=== PATIENT | female | born 1940 | race Caucasian/White ===

== ENCOUNTER → 2017-11-25 | Outpatient (CLI) | payer MEDICARE ==
[~2017-11-25] MED LIST: ATEN-1 PO; CALC625T57 PO; FLU45SYR25 IM ONLY; HYDR12.556 PO; LEVO25TA61 PO; LEVO50TA86 PO; LISI2.5T60 PO; METF-420 PO; METO-224 PO; MIRT-25 PO; OMEP-137 PO; PNEU0.5D3 IM; SIMV-54 PO; SULF-198 PO; ZOST19404 IM
== END ==
LOC: LAB 11:34
PROVIDERS: ATTEND Nurse Practitioner Family
DX: E03.9 Hypothyroidism, unspecified (principal)
CPT/HCPCS: 84443

== ENCOUNTER → 2018-01-20 | Outpatient (CLI) | payer MEDICARE ==
[~2018-01-20] MED LIST changes: +LEVO75TA73 PO; +MIRT7.5T2 PO
[2018-01-20 11:06] LABS: PLATELET COUNT, AUTOMATED 239 K/uL (150-450)
== END ==
LOC: LAB 10:05
PROVIDERS: ATTEND Nurse Practitioner Family
DX: E11.9 Type 2 diabetes mellitus without complications (principal); E78.5 Hyperlipidemia, unspecified; I10 Essential (primary) hypertension; I50.9 Heart failure, unspecified
CPT/HCPCS: 36415; 82040; 82247; 82310; 82374; 82435; 82465; 82565; 82947; 83036; 83718; 83880; 84075; 84132; 84155; 84295; 84443; 84450; 84460; 84478; 84520; 85025

== ENCOUNTER → 2018-05-01 | Outpatient (CLI) | payer MEDICARE ==
[~2018-05-01] MED LIST changes: -METF-420 PO; +METF-421 PO
== END ==
LOC: LAB 14:50
PROVIDERS: ATTEND Pharmacist Pharmacotherapy
DX: E03.9 Hypothyroidism, unspecified (principal)
CPT/HCPCS: 36415; 84443

== ENCOUNTER → 2018-06-10 | Outpatient (CLI) | payer MEDICARE ==
[~2018-06-10] MED LIST changes: +ASPI-1471 PO; +DONE5TAB29 PO; +GEMF600T91 PO; +METO25TA23 PO
[2018-06-10 11:39] LABS: PLATELET COUNT, AUTOMATED 242 K/uL (150-450)
== END ==
LOC: LAB 11:09
PROVIDERS: ATTEND Nurse Practitioner Family
DX: E11.9 Type 2 diabetes mellitus without complications (principal); E78.5 Hyperlipidemia, unspecified; I10 Essential (primary) hypertension; I50.9 Heart failure, unspecified; I25.10 Atherosclerotic heart disease of native coronary artery without angina pectoris
CPT/HCPCS: 36415; 82040; 82247; 82310; 82374; 82435; 82465; 82565; 82947; 83036; 83718; 83880; 84075; 84132; 84155; 84295; 84443; 84450; 84460; 84478; 84520; 85025

== ENCOUNTER → 2018-10-13 | Outpatient (CLI) | payer MEDICARE ==
[~2018-10-13] MED LIST changes: +DONE10TA38 PO; +DULO20CA3 PO; -GEMF600T91 PO; +GEMF600T92 PO; -METF-421 PO; +METF-452 PO; +ROSU20TA5 PO
== END ==
LOC: LAB 13:04
PROVIDERS: ATTEND Nurse Practitioner Family
DX: E78.5 Hyperlipidemia, unspecified (principal); E11.9 Type 2 diabetes mellitus without complications; I10 Essential (primary) hypertension
CPT/HCPCS: 36415; 82040; 82247; 82310; 82374; 82435; 82465; 82565; 82947; 83036; 83718; 84075; 84132; 84155; 84295; 84450; 84460; 84478; 84520

== ENCOUNTER → 2018-11-30 | Outpatient (CLI) | payer MEDICARE ==
[~2018-11-30] MED LIST changes: +GABA-547 PO; +GABA-549 PO; -GEMF600T92 PO; +GEMF600T96 PO; +GLIM1TAB25 PO
--- NOTE | 2018-11-30 11:35 | EKG ---
FACILITY: [facility] [place] PATIENT NAME: CHRIS CUEVAS : [id number] MR: [id number] V: [id number] EXAM DATE: ORDERING PHYSICIAN: MARIO TECHNOLOGIST: JOSE Andrade Reason : ARRHYTHMIA Blood Pressure : / mmHG Vent. Rate : 072 BPM Atrial Rate : 072 BPM P-R Int : 186 ms QRS Dur : 134 ms QT Int : 454 ms P-R-T Axes : 069 076 112 degrees QTc Int : 497 ms Poor data quality, interpretation may be adversely affected Normal sinus rhythm Nonspecific intraventricular block Abnormal ECG When compared with ECG of 05-AUG-2016 11:19, No significant change was found Confirmed by Alessandro Hart ([id number] on 11/30/2018 8:44:35 PM Referred By: Confirmed By:Alessandro Sherman
== END ==
LOC: LAB 10:09
PROVIDERS: ATTEND Nurse Practitioner Family
DX: I45.4 Nonspecific intraventricular block (principal); E78.5 Hyperlipidemia, unspecified; I50.9 Heart failure, unspecified
CPT/HCPCS: 36415; 82040; 82247; 82310; 82374; 82435; 82465; 82565; 82947; 83718; 83880; 84075; 84132; 84155; 84295; 84450; 84460; 84478; 84520

== ENCOUNTER → 2018-12-14 | Outpatient (CLI) | payer MEDICARE ==
[~2018-12-14] MED LIST changes: +IOPAMIDOL 76% 100 ML INFUS BTL 100 ML ONE; +NS(*) 0.9% 50 ML BAG 50 ML ONE; +RIVA15TA PO
--- NOTE | 2018-12-14 18:02 | RADIOLOGY IMAGING REPORT ---
FACILITY: [facility] PATIENT NAME: Althea Brown : 1940 MR: [id number] V: [id number] EXAM DATE: ORDERING PHYSICIAN: KEYANA MARTIN TECHNOLOGIST: Location: [facility] - [place], [place] Patient: Althea Brown : 1940 Visit/Account:[id number] Date of Sevice: 12/14/2018 CT CTA CHEST W & W/O CON HISTORY: Abnormal echo r/o thrombus ADDITIONAL HISTORY: None. TECHNIQUE: CTA chest with intravenous contrast. Axial imaging acquired following administration of IV contrast timed for maximum opacification of the pulmonary arterial vasculature. Slab 3-D MIP angie nstructed images were also created for further evaluation and interpretation. Reconstruction of the [place] [facility] [place] includes multiplanar 2-D in the sagittal and coronal planes and 3-D reconstructed rebecca nal slab MIP series. 3-D images were created by the technologist.Dose Lowering Technique One of the following dose optimization techniques was utilized in the performance of this exam: Autom ated exposure control; adjustment of the mA and/or kV according to the patient's size; or use of an i terative reconstruction technique. Specific details can be referenced in the facility's radiology C T exam operational policy. CONTRAST: 75 mL Isovue-370 COMPARISON: None. FINDINGS: Lungs/pleura: There is coarse linear stranding the right middle lobe consistent with atelectasis or scarring. There is septal and interstitial thickening seen along the posterior aspect of both lower lobes and posterior aspect of the lingula which may represent dependent change or developing infiltra duong. There is no evidence of pleural effusions. Calcified granulomas in both lungs Heart/vessels: The main pulmonary artery is prominent measuring 4 cm in diameter. Period the right main pulmonary artery and interlobar artery likewise appear prominent.. There is a linear hyperatten uating region along the posterior aspect of the right pulmonary artery and interlobar artery. The ap pearance is more suggestive of extrinsic mass effect from adjacent mediastinal soft tissue. Possibil ity of a small amount of thrombus along the posterior wall not entirely excluded. Otherwise no evide nce of pulmonary emboli.. There calcifications at the root of the aorta Mediastinum/lymph nodes: Negative. Visualized upper abdomen: Postsurgical changes from a cholecystectomy. Calcifications in the visual ized proximal abdominal aorta. There are several portacaval lymph nodes. The largest measures 1.6 x 1.2 cm Bones/soft tissues: Sternotomy sutures are present. There are spondylotic changes of the thoracic s pine Additional findings: None IMPRESSION: There is linear scarring versus atelectasis the right middle lobe Subpleural interstitial thickening along the posterior aspect of both lower lobes and posterior aspec t the lingula may represent dependent change or developing infiltrates Evidence for prior granulomatous process. Enlargement of the main pulmonary artery, right pulmonary artery and right intralobar artery which ca n be seen with with pulmonary arterial hypertension. There is a linear hypoattenuating region along the posterior aspect of the right pulmonary artery int erlobar artery. The appearance is more suggestive of extrinsic mass effect from adjacent mediastinal soft tissue. Possibility of a small amount of thrombus along the posterior wall not entirely exclud ed . Postsurgical changes from a cholecystectomy There are several portacaval lymph nodes. These could be reactive however clinical correlation neede d Report Dictated By: Felicia Godoy MD at 12/14/2018 5:43 PM Report E-Signed By: Felicia Godoy MD at 12/14/2018 5:58 PM WSN:[email or web address]
--- NOTE | 2018-12-14 18:05 | RADIOLOGY IMAGING REPORT ---
FACILITY: [facility] [place] PATIENT NAME: Althea Brown : 1940 MR: [id number] V: [id number] EXAM DATE: ORDERING PHYSICIAN: KEYANA MARTIN TECHNOLOGIST: Location: [facility] Patient: Althea Brown : 1940 Visit/Account:[id number] Date of Sevice: 12/14/2018 CAROTID HISTORY: lightheaded hx of CAD COMPARISON: None. FINDINGS: Grayscale, duplex and color Doppler interrogation of the extracranial carotid and vertebral arteries was performed bilateral. On the right, peak systolic velocities within the common and internal carotid arteries are 111 and 11 7 cm/sec respectively. A small amount of hard and soft plaque identified at the right carotid bulb e xtending into the right internal and external carotid arteries. Antegrade flow within the common, in ternal and external carotid arteries as well as vertebral artery. ICA/CCA ratio 1.05. On the left, peak systolic velocities within the common and internal carotid arteries are 97 and 143 cm/sec respectively. Small amount of hard and soft plaque identified left carotid bulb extending int o the proximal left internal and external carotid arteries.. Antegrade flow within the common, inter nal and external carotid arteries as well as vertebral artery. ICA/CCA ratio 2.4. IMPRESSION: A small amount of hard and soft plaque identified carotid bulbs extending into the proximal internal and external carotid arteries. No hemodynamically significant lesions identified on the right by markus ocity criteria. Elevated peak systolic velocity in the left ICA of 142 cm per second is consistent w ith a 50-69% category stenosis Velocity criteria are extrapolated from diameter data as defined by the Society of Radiologists in Ul trasound Consensus Conference Radiology 2003; 229;340-346 Report Dictated By: Felicia Godoy MD at 12/14/2018 5:58 PM Report E-Signed By: Felicia Godoy MD at 12/14/2018 6:01 PM WSN:[email or web address]
== END ==
LOC: US 03:53
PROVIDERS: ATTEND Nurse Practitioner Family
DX: J98.11 Atelectasis (principal); Z90.49 Acquired absence of other specified parts of digestive tract; I70.0 Atherosclerosis of aorta
CPT/HCPCS: 71275; 93306; 93880; J7050; Q9967

== ENCOUNTER → 2018-12-30 | Outpatient (CLI) | payer MEDICARE ==
[~2018-12-30] MED LIST changes: -IOPAMIDOL 76% 100 ML INFUS BTL 100 ML ONE; -NS(*) 0.9% 50 ML BAG 50 ML ONE; +RIVA20TA PO
[2018-12-30 15:06] LABS: PLATELET COUNT, AUTOMATED 236 K/uL (150-450)
== END ==
LOC: LAB 14:17
PROVIDERS: ATTEND Internal Medicine Nephrology
DX: I12.9 Hypertensive chronic kidney disease with stage 1 through stage 4 chronic kidney disease, or unspecified chronic kidney disease (principal); E11.9 Type 2 diabetes mellitus without complications; N18.3 Chronic kidney disease, stage 3 (moderate)
CPT/HCPCS: 36415; 81001; 82040; 82310; 82374; 82435; 82550; 82565; 82570; 82947; 83970; 84100; 84132; 84156; 84295; 84520; 85025

== ENCOUNTER → 2019-01-25 | Outpatient (CLI) | payer MEDICARE ==
[~2019-01-25] MED LIST changes: +ATOR40TA69 PO; +GABA-533 PO
== END ==
LOC: LAB 10:39
PROVIDERS: ATTEND Nurse Practitioner Family
DX: I50.9 Heart failure, unspecified (principal); E11.9 Type 2 diabetes mellitus without complications; E78.5 Hyperlipidemia, unspecified; I10 Essential (primary) hypertension
CPT/HCPCS: 36415; 82040; 82247; 82310; 82374; 82435; 82565; 82947; 83036; 84075; 84132; 84155; 84295; 84443; 84450; 84460; 84520

== ENCOUNTER → 2019-02-22 | Outpatient (CLI) | payer MEDICARE ==
[2019-02-22 13:11] LABS: PLATELET COUNT, AUTOMATED 223 K/uL (150-450)
== END ==
LOC: LAB 12:52
PROVIDERS: ATTEND Nurse Practitioner Family
DX: I50.9 Heart failure, unspecified (principal); R10.9 Unspecified abdominal pain; R10.13 Epigastric pain
CPT/HCPCS: 36415; 81001; 82040; 82150; 82247; 82310; 82374; 82435; 82565; 82947; 83690; 83880; 84075; 84132; 84155; 84295; 84450; 84460; 84520; 85025